=== PATIENT | male | born 1975 | race Caucasian/White ===

== ENCOUNTER 2016-06-12 21:13 | Inpatient (IN) | payer MEDICAID ==
[~2016-06-12] VITALS: Ht 180.3 cm; Wt 118.7 kg
[~2016-06-12 21:13] MED LIST: AMLO-511 PO; AMOXI2505L PO; BUSP5TAB20 PO; IBUP-2070 PO; LEVO75 PO; OLAN2.5T3 PO; SERT50TA12 PO; TOPI25 PO
[2016-06-12 21:40] LABS: BASOPHILS # (AUTO) 0.08 K/uL (0.00-0.20); BASOPHILS % (AUTO) 0.8 % (0.0-2.0); EOSINOPHILS # (AUTO) 0.15 K/uL (0.00-0.70); EOSINOPHILS % (AUTO) 1.51 % (1.0-6.0); HEMATOCRIT 44.4 % (41-53); HEMOGLOBIN 14.9 g/dL (13.5-17.5); LYMPHOCYTES # (AUTO) 3.1 K/uL (1.0-4.8); MEAN CORPUSCULAR HEMOGLOBIN 32.8 pg (26.0-34.0); MEAN CORPUSCULAR HGB CONC 33.6 G/dL (31.0-37.0); MEAN CORPUSCULAR VOLUME 98 fL (80-100); MONOCYTES # (AUTO) 0.4 K/uL (0.1-1.0); MONOCYTES % (AUTO) 3.8 % (2.0-9.0); NEUTROPHILS # (AUTO) 6.3 K/uL (1.8-7.7); NEUTROPHILS % (AUTO) 62.8 % (40.0-70.0); PLATELET COUNT (AUTO) 244 K/uL (150-450); RED BLOOD CELL COUNT(AUTO) 4.55 MIL/uL (4.50-5.90); RED CELL DISTRIBUTION WIDTH 14.1 % (11.5-14.5)
[2016-06-12 21:48] LABS: ANION GAP 14 mmol/L (8-16); CALCIUM, TOTAL 8.4 mg/dL (8.8-10.5); CARBON DIOXIDE 25 mmol/L (22-29); CHLORIDE 104 mmol/L (98-107); CREATININE 1.02 mg/dL (0.60-1.30); GLOMERULAR FILTR. RATE CALC > 60 mL/min (>60); POTASSIUM 3.6 mmol/L (3.5-5.1); SODIUM SERUM 143 mmol/L (136-145); UREA NITROGEN, BLOOD 18 mg/dL (7-18)
[2016-06-12 21:56] LABS: ALANINE AMINOTRANSFERASE 113 U/L (12-78); ALBUMIN 4.2 g/dL (3.4-5.0); ASPARTATE AMINOTRANSFERASE 45 U/L (15-37); BILIRUBIN,TOTAL 0.2 mg/dL (0.1-1.0); TOTAL PROTEIN, SERUM 7.8 g/dL (6.4-8.2)
[2016-06-12] MEDS ORDERED: OLANZapine 5 MG RAPDIS TABLET PO PRN (22:15)
[2016-06-12] MEDS ORDERED: ZOLPIDEM TARTRATE 10 MG TABLET PO PRN (22:15)
[2016-06-12] MEDS ORDERED: BusPIRone HCL 5 MG TABLET PO ONE (22:15)
[2016-06-12] MEDS ORDERED: OLANZapine 5 MG TABLET PO ONE (22:15)
[2016-06-13] MEDS ORDERED: INFLUENZA VIRUS VACCINE QVS 2016-17 (3YR+)/PF 60 MCG/0.5 ML SYRINGE IM ONE (18:15)
[2016-06-13] MEDS ORDERED: PNEUMOCOCCAL VACCINE POLYVALENT 0.5 ML VIAL [PPSV23] IM ONE (18:15)
[2016-06-13 18:19] VITALS: BP 146/85
[2016-06-13] MEDS ORDERED: IBUPROFEN 600 MG TABLET PO PRN (18:45)
[2016-06-14] MEDS: LEVOTHYROXINE SODIUM 75 MCG TABLET PO SCH (06:24)
[2016-06-14 06:39] VITALS: BP 138/85
[2016-06-14 08:07] VITALS: BP 155/85
[2016-06-14] MEDS: LORazepam 2 MG TABLET PO PRN (09:38)
[2016-06-14] MEDS: AmLODIPine BESYLATE 5 MG TABLET PO SCH (09:38)
[2016-06-14 16:00] VITALS: BP 135/88
[2016-06-14] MEDS: SERTRALINE HCL 50 MG TABLET PO SCH (16:21)
[2016-06-14] MEDS ORDERED: CloNIDine HCL 0.1 MG TABLET PO PRN (17:15)
[2016-06-14] MEDS ORDERED: PETROLATUM,WHITE 71 GM JELLY TP PRN (17:15)
[2016-06-14] MEDS ORDERED: ONDANSETRON HCL 4 MG TABLET PO PRN (17:15)
[2016-06-14] MEDS ORDERED: LOPERAMIDE HCL 2 MG CAPSULE PO PRN (17:15)
[2016-06-14] MEDS ORDERED: ACETAMINOPHEN 325 MG TABLET PO PRN (17:15)
[2016-06-14] MEDS ORDERED: BENZOCAINE/MENTHOL LOZENGE MM PRN (17:15)
[2016-06-14] MEDS ORDERED: MAGNESIUM HYDROXIDE SUSPENSION 30 ML UDCUP PO PRN (17:15)
[2016-06-14] MEDS ORDERED: MAG HYDROX/AL HYDROX/SIMETH ES 30 ML SUSPENSION UDCUP PO PRN (17:15)
[2016-06-14] MEDS ORDERED: BACITRACIN 28.4 GM OINTMENT TP PRN (17:15)
[2016-06-14] MEDS ORDERED: ALBUTEROL SULFATE HFA 90 MCG/PUFF 8 GM INHALER IH PRN (17:15)
[2016-06-15] MEDS: LEVOTHYROXINE SODIUM 75 MCG TABLET PO SCH (06:36)
[2016-06-15 06:53] VITALS: BP 138/94
[2016-06-15 08:07] VITALS: BP 137/84
[2016-06-15 08:39] LABS: THYROID STIMULATING HORMONE 14.9 uIU/mL (0.36-3.74)
[2016-06-15] MEDS: AmLODIPine BESYLATE 5 MG TABLET PO SCH (10:08)
[2016-06-15] MEDS: SERTRALINE HCL 50 MG TABLET PO SCH (10:08)
[2016-06-15 16:03] VITALS: BP 145/88
[2016-06-15] MEDS: LORazepam 2 MG TABLET PO PRN (16:36)
[2016-06-15] MEDS ORDERED: ATORVASTATIN CALCIUM 20 MG TABLET PO SCH (21:00)
[2016-06-16] MEDS ORDERED: LEVOTHYROXINE SODIUM 125 MCG TABLET PO SCH (06:30)
[2016-06-16 06:43] VITALS: BP 118/76
[2016-06-16 08:06] VITALS: BP 130/80
[2016-06-16] MEDS ORDERED: CHOLECALCIFEROL (VIT D3) 1,000 UNITS TABLET PO SCH (09:00)
[2016-06-16] MEDS ORDERED: FISH OIL/OMEGA-3 FATTY ACIDS 500 MG CAPSULE PO SCH (09:00)
[2016-06-16] MEDS: AmLODIPine BESYLATE 5 MG TABLET PO SCH (09:19)
[2016-06-16] MEDS: SERTRALINE HCL 50 MG TABLET PO SCH (09:19)
[2016-06-16] MEDS ORDERED: AMLO-511 PO (10:07)
[2016-06-16] MEDS ORDERED: ATOR20TA86 PO (10:07)
[2016-06-16] MEDS ORDERED: VITAD1000 PO (10:07)
[2016-06-16] MEDS ORDERED: OMEG300C3 PO (10:10)
[2016-06-16 10:16] LABS: HEPATITIS Bs ANTIGEN SCREEN P Negative (Negative); HEPATITIS C AB SCREEN <0.1 s/co ratio (0.0-0.9)
== END 2016-06-16 13:27 | disposition home or self-care (01) | DRG 750 ==
LOC: EMS 21:15 → B3A 06-13 14:45
DX: F25.1 Schizoaffective disorder, depressive type (principal); R45.851 Suicidal ideations; E83.51 Hypocalcemia; I10 Essential (primary) hypertension; F41.9 Anxiety disorder, unspecified; E03.9 Hypothyroidism, unspecified; F31.9 Bipolar disorder, unspecified; G47.00 Insomnia, unspecified; E66.9 Obesity, unspecified; R74.0 Nonspecific elevation of levels of transaminase and lactic acid dehydrogenase [LDH]; F10.10 Alcohol abuse, uncomplicated; K59.00 Constipation, unspecified; Z68.36 Body mass index [BMI] 36.0-36.9, adult; Z72.89 Other problems related to lifestyle; Z79.899 Other long term (current) drug therapy; Z28.21 Immunization not carried out because of patient refusal; Z98.890 Other specified postprocedural states; Z71.41 Alcohol abuse counseling and surveillance of alcoholic
CPT/HCPCS: 80074; 82306; 84443; 99285; G0480

== ENCOUNTER 2016-07-09 15:04 | Emergency (ER) | payer MEDICAID ==
[~2016-07-09] VITALS: Ht 180.3 cm; Wt 125.0 kg
[~2016-07-09 15:04] MED LIST changes: -AMOXI2505L PO; +ATOR20TA86 PO; -BUSP5TAB20 PO; -IBUP-2070 PO; -OLAN2.5T3 PO; +OMEG300C3 PO; -TOPI25 PO; +VITAD1000 PO
[2016-07-09] MEDS ORDERED: BUSP5TAB20 PO (16:34)
[2016-07-09 16:42] LABS: BASOPHILS % (AUTO) 0.9 % (0.0-2.0); EOSINOPHILS % (AUTO) 2.6 % (1.0-6.0); HEMATOCRIT 42.2 % (41-53); HEMOGLOBIN 14.1 g/dL (13.5-17.5); LYMPHOCYTES # (AUTO) 2.6 K/uL (1.0-4.8); LYMPHOCYTES % (AUTO) 28.2 % (22.0-44.0); MEAN CORPUSCULAR HEMOGLOBIN 33.3 pg (26.0-34.0); MEAN CORPUSCULAR HGB CONC 33.4 G/dL (31.0-37.0); MEAN CORPUSCULAR VOLUME 100 fL (80-100); MONOCYTES # (AUTO) 0.5 K/uL (0.1-1.0); NEUTROPHILS # (AUTO) 5.7 K/uL (1.8-7.7); NEUTROPHILS % (AUTO) 63.3 % (40.0-70.0); PLATELET COUNT (AUTO) 275 K/uL (150-450); RED BLOOD CELL COUNT(AUTO) 4.23 MIL/uL (4.50-5.90); RED CELL DISTRIBUTION WIDTH 14.7 % (11.5-14.5); WHITE BLOOD COUNT (AUTO) 9.1 K/uL (4.5-11.0)
[2016-07-09 16:50] LABS: ANION GAP 15 mmol/L (8-16); CALCIUM, TOTAL 8.7 mg/dL (8.8-10.5); CARBON DIOXIDE 22 mmol/L (22-29); CHLORIDE 102 mmol/L (98-107); CREATININE 0.93 mg/dL (0.60-1.30); GLOMERULAR FILTR. RATE CALC > 60 mL/min (>60); POTASSIUM 3.8 mmol/L (3.5-5.1); SODIUM SERUM 139 mmol/L (136-145); UREA NITROGEN, BLOOD 17 mg/dL (7-18)
[2016-07-09 16:55] LABS: ALANINE AMINOTRANSFERASE 187 U/L (12-78); ALBUMIN 3.9 g/dL (3.4-5.0); ASPARTATE AMINOTRANSFERASE 113 U/L (15-37); BILIRUBIN,TOTAL 0.3 mg/dL (0.1-1.0); TOTAL PROTEIN, SERUM 7.6 g/dL (6.4-8.2)
[2016-07-09 18:04] VITALS: BP 139/86
== END 2016-07-09 18:27 | disposition home or self-care (01) ==
LOC: EMS 15:06
DX: F25.9 Schizoaffective disorder, unspecified (principal); R45.851 Suicidal ideations; K70.30 Alcoholic cirrhosis of liver without ascites; F31.9 Bipolar disorder, unspecified; I10 Essential (primary) hypertension; E03.9 Hypothyroidism, unspecified; F41.9 Anxiety disorder, unspecified
CPT/HCPCS: 36415; 80053; 80307; 85025; 99284; G0480